=== PATIENT | male | born 1970 | race Caucasian/White ===

== ENCOUNTER 2016-09-14 10:06 | Day surgery (SDC) | payer OTHER ==
[~2016-09-14] VITALS: Ht 177.8 cm; Wt 123.4 kg
[2016-09-14 12:10] VITALS: Ht 177.8 cm; Wt 123.4 kg
[2016-09-14] MEDS ORDERED: OMEPRAZOLE (12:35)
[2016-09-14] MEDS ORDERED: IBUPROFEN (12:35)
[2016-09-14] MEDS ORDERED: LANTUS (12:35)
[2016-09-14] MEDS ORDERED: JANUVIA (12:35)
[2016-09-14] MEDS ORDERED: GLIPIZIDE (12:35)
[2016-09-14] MEDS ORDERED: METFORMIN (12:35)
[2016-09-14] MEDS ORDERED: LOSARTAN (12:35)
[2016-09-14] MEDS ORDERED: TRAMADOL (12:35)
[2016-09-14 13:10] VITALS: BP 134/76; PULSE 67; RESP 20
[2016-09-14] MEDS ORDERED: PROPOFOL 20 ML ONE (13:42)
[2016-09-14] MEDS ORDERED: LIDOCAINE 2% (SDV) 5 ML INJ ONE (13:42)
[2016-09-14 14:35] VITALS: BP 124/73; PULSE 62; RESP 12
--- NOTE | 2016-09-14 14:35 | GILP ---
DATE OF PROCEDURE: 09/14/2016 NAME OF PROCEDURES: Esophagogastroduodenoscopy and biopsy. SURGEON: Shin Nguyen MD PREOPERATIVE DIAGNOSES: 1. Abdominal pain. 2. Chronic heartburn. POSTOPERATIVE DIAGNOSES: 1. Gastroesophageal reflux disease. 2. Gastritis with erosions. 3. Gastric mucosal biopsies were taken for Helicobacter pylori test. INDICATION FOR THE PROCEDURE: Mr. Beni Meza is a 46-year-old male patient who had upper abdominal p ain and chronic heartburn, not responding to therapy. The patient was scheduled for endoscopic exam ination for further evaluation. The procedure and possible complications were well explained to the patient. The patient understood and consented to the procedure. DESCRIPTION OF PROCEDURE: Under the influence of anesthesia, the gastroscope was carefully introduc ed into the esophagus and under direct vision, it was advanced to the stomach and through the pyloru s into the duodenal bulb and descending duodenum. FINDINGS: ESOPHAGUS: The patient had gastroesophageal reflux disease, but the esophageal mucosa was normal wi thout ulcerations or erosions. STOMACH: The patient had gastritis with erosions. Gastric mucosal biopsies were taken for H. pylor i test. DUODENUM: Normal. He tolerated the procedure very well and there was no complication from the procedure. At the end o f the procedure, he was awake with stable vital signs and he was discharged home to the care of his family. IMPRESSION: 1. Gastroesophageal reflux disease. 2. Gastritis with erosions. 3. Gastric mucosal biopsies were taken for Helicobacter pylori test. PLAN: 1. Continue omeprazole. 2. Add Zantac 300 mg p.o. at bedtime. 3. Await H. pylori test report. Dictated By: SHIN NGUYEN MD GD/JAMAAL Conf#: [id number] DID#: [id number] CC: SHIN NGUYEN MD;*EndCC*
== END 2016-09-14 16:29 | disposition home or self-care (01) ==
LOC: GIL 10:06 → EDSEX 10:06 → GIL 10:09
PROVIDERS: ATTEND Internal Medicine Gastroenterology
DX: K29.60 Other gastritis without bleeding (principal); E11.9 Type 2 diabetes mellitus without complications; I10 Essential (primary) hypertension; E78.5 Hyperlipidemia, unspecified
CPT/HCPCS: 43239; 87081; Z7610